=== PATIENT | female | born 1995 | race African-American/Black ===

== ENCOUNTER 2017-06-24 16:59 | Emergency (ER) | payer MEDICARE, OTHER ==
[~2017-06-24] VITALS: Ht 175.3 cm; Wt 72.6 kg
[2017-06-24] MEDS ORDERED: TOPAMAX200 MG PO (17:10)
[2017-06-24] MEDS ORDERED: BUPROPION XL300 MG PO (17:10)
[2017-06-24] MEDS ORDERED: CATAPRES0.1 MG PO (17:11)
== END 2017-06-24 17:56 | disposition home or self-care (01) ==
LOC: SED 16:59
DX: L03.115 Cellulitis of right lower limb (principal); F17.200 Nicotine dependence, unspecified, uncomplicated; Z79.899 Other long term (current) drug therapy; Z88.1 Allergy status to other antibiotic agents; Z88.8 Allergy status to other drugs, medicaments and biological substances
CPT/HCPCS: 99283